=== PATIENT | female | born 1950 ===

== ENCOUNTER 2023-02-23 15:31 | Emergency (ER) | payer OTHER ==
[~2023-02-23] VITALS: Ht 170.2 cm; Wt 63.5 kg
[2023-02-23 15:34] VITALS: BP 181/85; PULSE 96; RESP 17; O2SAT 99
[2023-02-23 19:57] VITALS: BP 187/97; PULSE 91; RESP 16; O2SAT 97
== END 2023-02-23 19:57 | disposition home or self-care (01) ==
LOC: MED 15:31
DX: I10 Essential (primary) hypertension (principal); Z79.899 Other long term (current) drug therapy
CPT/HCPCS: 99283

== ENCOUNTER 2023-11-05 13:41 | Emergency (ER) | payer MEDICARE, OTHER ==
[~2023-11-05] VITALS: Ht 170.2 cm; Wt 56.7 kg
[2023-11-05 14:01] VITALS: BP 152/83; PULSE 100; RESP 14; TEMP 97.9; O2SAT 95
[2023-11-05] MEDS ORDERED: ACET-10509 PO (15:45)
[2023-11-05 17:10] VITALS: BP 145/78; PULSE 88; RESP 16; TEMP 98.1; O2SAT 99
== END 2023-11-05 17:10 | disposition home or self-care (01) ==
LOC: MED 13:41
DX: S82.832A Other fracture of upper and lower end of left fibula, initial encounter for closed fracture (principal); I10 Essential (primary) hypertension; Z79.899 Other long term (current) drug therapy; W18.39XA Other fall on same level, initial encounter; Y92.89 Other specified places as the place of occurrence of the external cause; Y93.89 Activity, other specified; Y99.8 Other external cause status
CPT/HCPCS: 73610; 73630; 99284